=== PATIENT | female | born 1990 | race Caucasian/White ===

== ENCOUNTER 2020-03-14 23:29 | Emergency (ER) | payer OTHER ==
[~2020-03-14] VITALS: Ht 157.5 cm; Wt 66.8 kg
[2020-03-14 23:31] VITALS: BP 102/68
[2020-03-15 00:22] LABS: CLARITY URINE CLOUDY (CLEAR); COLOR URINE YELLOW (YELLOW); KETONES URINE NEGATIVE (NEGATIVE); LEUKOCYTE ESTERASE URINE TRACE (NEGATIVE); NITRITE URINE NEGATIVE (NEGATIVE); OCCULT BLOOD URINE NEGATIVE (NEGATIVE); PROTEIN URINE NEGATIVE (NEGATIVE); SPECIFIC GRAVITY URINE 1.022 (1.005-1.030); UROBILINOGEN URINE 0.2 E.U./dL (0.2-1.0)
[2020-03-15 00:57] LABS: CHLORIDE 106 mEq/L (98-107)
[2020-03-15 01:03] LABS: BASOPHILS % 0.5 % (0.0-2.0); EOSINOPHILS % 2.1 % (0.0-5.0); HEMATOCRIT. 39.9 % (36.0-48.0); HEMOGLOBIN. 13.6 g/dL (12.0-16.0); LYMPHOCYTES % 30.4 % (20.0-50.0); MEAN CORPUSCULAR HEMOGLOBIN 33.7 pg (28.0-32.0); MEAN CORPUSCULAR VOLUME 98.6 fL (81.0-99.0); MEAN PLATELET VOLUME 8.6 fl (7.4-10.4); MONOCYTES % 7.8 % (2.0-8.0); NEUTROPHILS % 59.2 % (40.0-76.0); PLATELET 187 x1000/uL (130-400); RED BLOOD CELL COUNT 4.05 mill/uL (4.2-5.4)
[2020-03-15] MEDS ORDERED: KETOROLAC 60MG/2ML VIAL IM ONE (01:30)
== END 2020-03-15 02:31 | disposition home or self-care (01) ==
LOC: ER 23:29
DX: R10.9 Unspecified abdominal pain (principal)
CPT/HCPCS: 36415; 80053; 81003; 81025; 85025; 96372; 99283; J1885